=== PATIENT | female | born 1945 | race Caucasian/White ===

== ENCOUNTER 2018-09-29 15:48 | Outpatient (CLI) | payer MEDICARE, OTHER ==
--- NOTE | 2018-09-29 21:17 | XRAY Report ---
Reason: CHRONIC BACK PAIN Procedure Date: 09/29/2018 Accession Number: [id number] / [id number] Procedure: XR - Lumbar Spine 2 View CPT Code: FULL RESULT: EXAM: LUMBOSACRAL SPINE RADIOGRAPHY EXAM DATE: 09/29/2018 04:12 PM. CLINICAL HISTORY: Chronic back pain. Increased over the last several months after moving household goods. COMPARISONS: None. TECHNIQUE: 3 views. FINDINGS: Alignment: 10 degree dextroscoliosis centered at L2. 12 mm anterior subluxation L4 on L5 (grade 2 degenerative subluxation). Bones: Five [id number]-uworxre lumbar vertebral bodies are present. Old mild anterior wedging L1 and L2. Disks: Moderate to marked narrowing, moderate osteophytes and subcortical sclerosis throughout the lumbar spine, to a greatest degree at L1-L2 and L3-L4. Facets: Multilevel marked degenerative changes. Sacroiliac Joints: Moderate degenerative changes both sacroiliac joints. Mild degenerative changes both hips. Soft Tissues: Cholecystectomy. The visualized bowel gas pattern is normal. IMPRESSION: 1. No acute bony abnormality. 2. Multilevel moderate to marked degenerative changes. Suspect multilevel central and neural foraminal compromise due to such, especially at the L4-L5 level. RADIA
== END 2018-09-29 15:49 | disposition home or self-care (01) ==
LOC: DI 15:48
PROVIDERS: ATTEND Registered Nurse
DX: M47.816 Spondylosis without myelopathy or radiculopathy, lumbar region (principal); M41.86 Other forms of scoliosis, lumbar region; M48.061 Spinal stenosis, lumbar region without neurogenic claudication; M25.78 Osteophyte, vertebrae; G89.29 Other chronic pain
CPT/HCPCS: 72100

== ENCOUNTER 2018-12-17 10:34 | Outpatient (CLI) | payer MEDICARE, OTHER ==
[2018-12-17] MEDS ORDERED: IOVERSOL 320 50 ML VIAL ONE (10:43)
[2018-12-17] MEDS ORDERED: IOVERSOL 320 100 ML VIAL IVP ONE ×2 (10:43→12:12)
[2018-12-17 11:13] LABS: CREATININE 0.8 mg/dL (0.4-1.0)
[2018-12-17] MEDS ORDERED: IOVERSOL 320 50 ML VIAL PO ONE (12:12)
--- NOTE | 2018-12-17 12:42 | CT Report ---
Reason: EPIGASTRIC PAIN Procedure Date: 12/17/2018 Accession Number: [id number] / [id number] Procedure: CT - Abdomen/Pelvis W CPT Code: FULL RESULT: EXAM: CT ABDOMEN AND PELVIS EXAM DATE: 12/17/2018 12:11 PM. CLINICAL HISTORY: Epigastric pain. COMPARISONS: None. TECHNIQUE: Routine helical CT imaging was performed through the abdomen and pelvis. IV contrast: opti 320 90 ml. Enteric contrast: Yes. Reconstructions: Coronal and sagittal. In accordance with CT protocol optimization, one or more of the following dose reduction techniques were utilized for this exam: automated exposure control, adjustment of mA and/or KV based on patient size, or use of iterative reconstructive technique. FINDINGS: Lung Bases: Unremarkable. Liver: Normal. No masses. Gallbladder/Bile Ducts: Status post cholecystectomy. Spleen: Normal. Pancreas: Normal. Adrenal Glands: Normal. Kidneys: Normal. No masses or hydronephrosis. Peritoneal Cavity/Bowel: Normal. No free fluid, free air or adenopathy. No masses or acute inflammatory process. The appendix is well visualized and normal. Pelvic Organs: Normal. The bladder and visualized pelvic organs are within normal limits. Vasculature: Unusual appearance of the superior abdominal IVC, felt to be contrast bolus timing related, less likely thrombus or narrowing. Bones: No significant abnormality. Other: None. IMPRESSION: Unusual appearance of the contrast bolus within the IVC was felt to be due to bolus timing. If the patient demonstrates symptoms compatible with DVT or central venous obstruction, ultrasound examination of the abdomen and/or leg veins could be used to clarify. Otherwise, no abnormalities detected by CT. RADIA
== END 2018-12-17 10:35 | disposition home or self-care (01) ==
LOC: LAB 10:34 → DI 10:35
PROVIDERS: ATTEND Nurse Practitioner Family
DX: R10.13 Epigastric pain (principal); Z90.49 Acquired absence of other specified parts of digestive tract
CPT/HCPCS: 36415; 74177; 82565; Q9967

== ENCOUNTER 2019-01-05 20:37 | Outpatient (CLI) | payer MEDICARE, OTHER ==
--- NOTE | 2019-01-06 11:42 | Ultrasound Report ---
Reason: ABNORMAL FINDINGS ON DIAGNOSTIC IMAGING OF ABDOMIN Procedure Date: 01/05/2019 Accession Number: [id number] / [id number] Procedure: US - Retroperitoneal Limited CPT Code: FULL RESULT: EXAM: IVC DOPPLER ULTRASOUND EXAM DATE: 01/05/2019 09:10 PM. CLINICAL HISTORY: Follow-up atypical appearance of the IVC on recent abdominal CT 12/17/2018. COMPARISON: ABDOMEN/PELVIS W/ 12/17/2018 12:04 PM. TECHNIQUE: Real-time sonographic imaging of retroperitoneal vascular structures, including color-flow, Doppler flow and spectral analysis was performed by the manager of international with attention to the IVC and common iliac veins.. Multiple equal opportunity representative static images were saved for review. FINDINGS: Proximal intrahepatic IVC is diminished in caliber measuring 5 mm in diameter. There is patent flow. Normal caliber to the distal IVC at 1.4 x 2.4 cm. Both common iliac veins show normal caliber and patency. No appreciable thrombus. Review of the CT scan demonstrates focal circumferential narrowing of the junction of the hepatic veins and upper intrahepatic IVC, seen best on reconstructed images. No apparent external mass. The contrast heterogeneity on the abdomen is consistent with mixing of non-opacified with contrast opacified blood. IMPRESSION: 1. Small caliber but patent proximal intrahepatic IVC. No evidence of IVC or common iliac vein thrombosis. Circumferential significant narrowing of the upper intrahepatic IVC at the junction of hepatic veins is best seen on CT of uncertain etiology and chronicity. No appreciable mass. RADIA
== END 2019-01-05 20:38 | disposition home or self-care (01) ==
LOC: DI 20:37
PROVIDERS: ATTEND Nurse Practitioner Family
DX: R93.5 Abnormal findings on diagnostic imaging of other abdominal regions, including retroperitoneum (principal)
CPT/HCPCS: 76775

== ENCOUNTER 2020-02-07 14:08 | Outpatient (CLI) | payer MEDICARE, OTHER ==
--- NOTE | 2020-02-08 09:55 | XRAY Report ---
Reason: SWELLING OF JOINT OF RT WRIST Procedure Date: 02/07/2020 Accession Number: [id number] / [id number] Procedure: XR - Hand 3 View RT CPT Code: Final Report FULL RESULT: EXAM: RIGHT HAND RADIOGRAPHY EXAM DATE: 02/07/2020 02:24 PM. CLINICAL HISTORY: Swelling of joint of right wrist. COMPARISON: None. TECHNIQUE: 3 views. FINDINGS: Generalized bony demineralization. No fractures detected. No subluxations. Advanced degenerative changes at the 1st carpometacarpal articulation, partial collapse of the trapezium and osteophytic spurring at the base of the 1st metacarpal. There is moderate narrowing of the 2nd metacarpophalangeal articulation, with osteophytic spurring of the head of the 2nd metacarpal. There is moderate narrowing and osteophytic spurring of the distal interphalangeal articulations. There is also moderate narrowing of the proximal interphalangeal articulations, with tendinous calcification at the 4th proximal interphalangeal articulation. IMPRESSION: Moderate to advanced degenerative changes at the articulations of the right hand. RADIA
--- NOTE | 2020-02-08 09:55 | XRAY Report ---
Reason: SWELLING OF JOINT OF RT WRIST Procedure Date: 02/07/2020 Accession Number: [id number] / [id number] Procedure: XR - Wrist 3 View RT CPT Code: Final Report FULL RESULT: EXAM: RIGHT WRIST RADIOGRAPHY EXAM DATE: 02/07/2020 02:24 PM. CLINICAL HISTORY: Swelling of joint of right wrist. COMPARISON: None. TECHNIQUE: 3 views. FINDINGS: There is advanced arthropathic changes at the first carpometacarpal articulation, with partial collapse of the trapezium and osteophytic spurring at the articulation. Elsewhere intercarpal articulations appear within normal limits. No fracture identified. Mild narrowing of the radiocarpal articulation. IMPRESSION: Advanced arthropathic changes at the first carpometacarpal articulation. RADIA
== END 2020-02-07 14:09 | disposition home or self-care (01) ==
LOC: DI 14:08
PROVIDERS: ATTEND Nurse Practitioner Family
DX: M19.041 Primary osteoarthritis, right hand (principal); M18.11 Unilateral primary osteoarthritis of first carpometacarpal joint, right hand

== ENCOUNTER 2020-11-29 13:13 | Outpatient (CLI) | payer MEDICARE, OTHER ==
[2020-11-29] MEDS ORDERED: IOVERSOL 320 100 ML VIAL IVP ONE ×2 (13:28→17:02)
[2020-11-29] MEDS ORDERED: IOPAMIDOL-300 50 ML VIAL ONE (13:28)
[2020-11-29] MEDS ORDERED: IOPAMIDOL-300 50 ML VIAL PO ONE (17:03)
--- NOTE | 2020-11-29 17:13 | CT Report ---
PROCEDURE: Abdomen/Pelvis W INDICATIONS: LT UPPER QUAD PAIN CONTRAST: IV CONTRAST: Optiray 320 ml: 100 PO CONTRAST: Isovue 300 ml50 TECHNIQUE: After the administration of oral and IV contrast, 5 mm thick sections acquired from the diaphragms to the symphysis. 5 mm thick coronal and sagittal reformats were acquired. For radiation dose reducti on, the following was used: automated exposure control, adjustment of mA and/or kV according to marylin ent size. COMPARISON: CT abdomen pelvis 12/17/2018 FINDINGS: Image quality: Excellent. ABDOMEN: Lung bases: Lung bases are clear. Heart size is normal. Solid organs: Hepatomegaly and moderate hepatic steatosis. Possible vague 1.9 cm enhancing lesion ce ntrally in the right hepatic lobe, segment VIII. No other discrete liver lesion visible. The spleen i s normal size and contains an 8 mm hypodensity in the superior pole. There is a splenule adjacent to the inferior pole. The gallbladder is surgically absent. Biliary system is non dilated. Pancreas enh ances normally. No adrenal nodules. Kidneys demonstrate normal size and enhancement, without hydron ephrosis. Peritoneum and bowel: Bowel loops demonstrate normal wall thickness and caliber. No free fluid or a ir. Nodes and vessels: No retroperitoneal or mesenteric adenopathy by size criteria. Aorta and inferior vena cava are normal in size. Miscellaneous: No ventral hernias. PELVIS: Genitourinary: Bladder wall thickness is normal. The uterus is surgically absent. Residual ovarian tissue appears normal. Miscellaneous: No inguinal hernias or adenopathy. Bones: No suspicious bony lesions. Multilevel degenerative disc and endplate changes throughout the lumbar spine with anterolisthesis at the L4-5 level. No vertebral body compression fractures. IMPRESSION: 1. No explanation for left upper quadrant pain. 2. Possible 1.9 cm central liver lesion, not seen previously, potentially FNH or hemangioma. Consider liver MRI for further characterization. 3. Hepatomegaly and hepatic steatosis. 4. Hypodensity in the spleen is likely benign hemangioma or lymphangioma. This was present previously . Reviewed by: Ashley Baca MD on 11/29/2020 5:12 PM PST Approved by: Ashley Baca MD on 11/29/2020 5:12 PM PST Station ID: [id number]
== END 2020-11-29 13:14 | disposition home or self-care (01) ==
LOC: DI 13:13
PROVIDERS: ATTEND Internal Medicine
DX: R10.12 Left upper quadrant pain (principal); R16.0 Hepatomegaly, not elsewhere classified; K76.0 Fatty (change of) liver, not elsewhere classified; R93.2 Abnormal findings on diagnostic imaging of liver and biliary tract; R93.89 Abnormal findings on diagnostic imaging of other specified body structures; Z79.899 Other long term (current) drug therapy
CPT/HCPCS: 74177; Q9967; 36415; 82565

== ENCOUNTER 2020-11-29 13:17 | Outpatient (CLI) | payer MEDICARE, OTHER ==
[2020-11-29 14:00] LABS: CREATININE 0.6 mg/dL (0.4-1.0)
== END 2020-11-29 13:18 | disposition home or self-care (01) ==
LOC: LAB 13:17
PROVIDERS: ATTEND Internal Medicine
DX: Z79.899 Other long term (current) drug therapy (principal)
CPT/HCPCS: 36415; 82565

== ENCOUNTER 2020-12-24 15:17 | Outpatient (CLI) | payer MEDICARE, OTHER ==
[2020-12-24] MEDS ORDERED: GADOBUTROL 10 MMOL/10 ML VIAL ONE (15:39)
[2020-12-24] MEDS ORDERED: GADOBUTROL 10 MMOL/10 ML VIAL IVP ONE (16:20)
--- NOTE | 2020-12-25 10:03 | MRI Report ---
PROCEDURE: Abdomen W/WO INDICATIONS: ABN ABD CT CONTRAST: IV CONTRAST: Gadavist ml: 8 TECHNIQUE: Coronal ultra fast SE, axial 2D spoiled GE in- and [id number]; axial breath-hold T2 fast SE. Dynam ic axial ultra fast GE during the administration of contrast; post-contrast coronal ultra fast GE or 2D spoiled GE with fat saturation from the hepatic dome to the iliac crests. Optional diffusion weig hted imaging and ADC may be performed. COMPARISON: CT abdomen pelvis 11/29/2020 FINDINGS: Image quality: Adequate, but there is artifact from patient body habitus obscuring portions of the li dada. Lung bases: No basal pleural effusions. Heart size is normal. Solid organs: The liver is mildly enlarged and demonstrates moderate signal drop on T1 out of phase i maging with mild heterogeneity. The vague 1.9 cm area of arterial enhancement in segment VIII is not clearly redemonstrated on the current study. There is no suspicious washout lesion in the liver. The vasculature appears patent. Spleen length is at the upper limits of normal and there is a small subcentimeter focus of hypoenhanc ement in the superior pole with increased T2 signal, likely a cyst. Gallbladder is surgically absent . Biliary system is non dilated. Pancreas is normal in morphology. No adrenal nodules. Both kidne ys demonstrate normal size and enhancement, without hydronephrosis. Subcentimeter cortical cysts noble se from the upper pole of each kidney. Nodes and vessels: No retroperitoneal or mesenteric adenopathy by size criteria. Aorta and inferior vena cava are normal in size. Bowel and peritoneum: Unenhanced bowel loops are normal in caliber. No free fluid. Bones and soft tissues: No ventral hernias. Bone marrow is normal in overall signal. IMPRESSION: 1. No convincing liver lesion. The previously seen arterial enhancement was possibly vascular shuntin g, benign flash fill hemangioma, or area of heterogeneous focal fatty sparing. 2. Hepatomegaly and moderate hepatic steatosis. 3. Small upper pole splenic cyst. Reviewed by: Ashley Baca MD on 12/25/2020 10:02 AM PST Approved by: Ashley Baca MD on 12/25/2020 10:02 AM PST Station ID: [id number]
== END 2020-12-24 15:18 | disposition home or self-care (01) ==
LOC: DI 15:17
PROVIDERS: ATTEND Internal Medicine
DX: K76.0 Fatty (change of) liver, not elsewhere classified (principal); D73.4 Cyst of spleen
CPT/HCPCS: 74183; A9585

== ENCOUNTER 2023-07-20 15:33 | Emergency (ER) | payer MEDICARE, OTHER ==
--- NOTE | 2023-07-20 16:03 | XRAY Report ---
PROCEDURE: Chest 1 View X-Ray INDICATIONS: SOB/KELLEY TECHNIQUE: One view of the chest was acquired. COMPARISON: None. FINDINGS: Surgical changes and devices: None. Lungs and pleura: No pleural effusions or pneumothorax. Prominent interstitial markings. Mediastinum: Mediastinal contours appear normal. Heart size is mildly enlarged. Bones and chest wall: No suspicious bony lesions. Overlying soft tissues appear unremarkable. IMPRESSION: Cardiomegaly with prominent interstitial markings which may represent pulmonary edema, correlate with volume status. Reviewed by: Thai Warren MD on 07/20/2023 4:02 PM PDT Approved by: Thai Warren MD on 07/20/2023 4:02 PM PDT Station ID: [id number]
[2023-07-20 16:25] LABS: BASOPHILS % (AUTO) 0.3 %; EOSINOPHILS # (AUTO) 0.4 10^3/uL (0.0-0.7); EOSINOPHILS % (AUTO) 2.9 %; HCT - HEMATOCRIT 36.2 % (37.0-47.0); HGB - HEMOGLOBIN 11.7 g/dL (12.0-16.0); LYMPHOCYTES # (AUTO) 3.1 10^3/uL (1.5-3.5); LYMPHOCYTES % (AUTO) 24.8 %; MEAN CORPUSCULAR HEMOGLOBIN 29.8 pg (27.0-31.0); MEAN CORPUSCULAR HGB CONC 32.3 g/dL (32.0-36.0); MEAN CORPUSCULAR VOLUME 92.1 fL (81.0-99.0); MEAN PLATELET VOLUME 9.8 fL (7.9-10.8); MONOCYTES # (AUTO) 0.7 10^3/uL (0.0-1.0); MONOCYTES % (AUTO) 5.8 %; NEUTROPHILS # (AUTO) 8.3 10^3/uL (1.5-6.6); NEUTROPHILS % (AUTO) 65.7 %; PLT - PLATELET COUNT 308 10^3/uL (130-450); RED BLOOD COUNT 3.93 10^6/uL (4.20-5.40); RED CELL DISTRIBUTION WIDTH 12.5 % (12.0-15.0); WHITE BLOOD COUNT 12.6 x10^3/uL (4.8-10.8)
--- OUTSIDE RECORDS SUMMARY | 2023-07-20 16:30 | EXTERNAL MEDICAL SUMMARY RPT | Continuity of Care Document ---
Author Name Unknown Address [address] [place] [address] Phone Organization [facility] Address [address] [place] [address] Phone Care Team Providers Care Agriculture Research Director Name Role Phone Unavailable Unavailable Unavailable Gabe Small, Jai Unavailable Unavailable Lemuel Horton, Mike Unavailable Unavailable Gentry Small, Ariadna Unavailable Unavailable Kalyan Patient Registrar, Hammad Unavailable Marcia Harris Patient Registrar Ii, Angely Unavailab le Unavailable Medications date description facility 2023-04-28 00:00 [facility]ide [facility] 2023-04-28 00:00 semaglutide [facility] 2023-04-29 00:00 semaglutide [facility] 2023-07-17 00:00 semaglutide [facility] 2023-07-17 00:00 semaglutide [facility] 2023-07-20 00:00 semaglutide [facility] 2023-07-20 00:00 semaglutide [facility] 2023-07-17 00:00 azithromycin [facility] 2023-07-17 00:00 azithromycin [facility] 2023-04-28 00:00 semaglutide [facility] 2023-04-28 00:00 semaglutide [facility] 2023-04-29 00:00 semaglutide [facility] 2023-07-17 00:00 semaglutide [facility] 2023-07-17 00:00 semaglutide [facility] 2023-07-20 00:00 semaglutide [facility] 2023-07-20 00:00 semaglutide [facility] 2023-04-28 00:00 semaglutide [facility] 2023-04-28 00:00 semaglutide [facility] 2023-04-29 00:00 semaglutide [facility] 2023-07-17 00:00 semaglutide [facility] 2023-07-17 00:00 semaglutide [facility] 2023-07-20 00:00 semaglutide [facility] 2023-07-20 00:00 semaglutide [facility] 2023-04-28 00:00 metformin [facility] 2023-04-28 00:00 metformin [facility] 2023-04-29 00:00 metformin [facility] 2023-07-17 00:00 metformin [facility] 2023-07-17 00:00 metformin [facility] 2023-07-20 00:00 metformin [facility] 2023-07-20 00:00 metformin [facility] 2023-04-28 00:00 metformin [facility] 2023-04-28 00:00 metformin [facility] 2023-04-29 00:00 metformin [facility] 2023-07-17 00:00 metformin [facility] 2023-07-17 00:00 metformin [facility] 2023-07-20 00:00 metformin [facility] 2023-07-20 00:00 metformin [facility] 2023-07-17 00:00 azithromycin [facility] 2023-07-17 00:00 azithromycin [facility] 2023-04-28 00:00 atorvastatin [facility] 2023-04-28 00:00 atorvastatin [facility] 2023-04-29 00:00 atorvastatin [facility] 2023-07-17 00:00 atorvastatin [facility] 2023-07-17 00:00 atorvastatin [facility] 2023-07-20 00:00 atorvastatin [facility] [place] 2023-07-20 00:00 atorvastatin [facility] [place] 2023-07-17 00:00 albuterol sulfate [facility] [place] 2023-07-17 00:00 albuterol sulfate [facility] [place] 2023-07-17 00:00 albuterol sulfate [facility] [place] 2023-07-17 00:00 albuterol sulfate [facility] [place] 2023-04-28 00:00 atorvastatin [facility] [place] 2023-04-28 00:00 atorvastatin [facility] [place] 2023-04-29 00:00 atorvastatin [facility] [place] 2023-07-17 00:00 atorvastatin [facility] [place] 2023-07-17 00:00 atorvastatin [facility] [place] 2023-07-20 00:00 atorvastatin [facility] [place] 2023-07-20 00:00 atorvastatin [facility] 2023-07-17 00:00 azithromycin [facility] 2023-07-17 00:00 azithromycin [facility] 2023-04-28 00:00 metformin [facility] 2023-04-28 00:00 metformin [facility] [place] 2023-04-29 00:00 metformin [facility] [place] 2023-07-17 00:00 metformin [facility] 2023-07-17 00:00 metformin [facility] 2023-07-20 00:00 metformin [facility] 2023-07-20 00:00 metformin [facility] 2023-04-28 00:00 duloxetine [facility] 2023-04-28 00:00 duloxetine [facility] 2023-04-29 00:00 duloxetine [facility] 2023-07-17 00:00 duloxetine [facility] 2023-07-17 00:00 duloxetine [facility] 2023-07-20 00:00 duloxetine [facility] 2023-07-20 00:00 duloxetine [facility] [place] 2023-04-28 00:00 duloxetine [facility] [place] 2023-04-28 00:00 duloxetine [facility] 2023-04-29 00:00 duloxetine [facility] [place] 2023-07-17 00:00 duloxetine [facility] [place] 2023-07-17 00:00 duloxetine [facility] 2023-07-20 00:00 duloxetine [facility] 2023-07-20 00:00 duloxetine [facility] 2023-07-17 00:00 azithromycin [facility] 2023-07-17 00:00 azithromycin [facility] [place] 2023-04-28 00:00 atorvastatin [facility] [place] 2023-04-28 00:00 atorvastatin [facility] [place] 2023-04-29 00:00 atorvastatin [facility] 2023-07-17 00:00 atorvastatin [facility] 2023-07-17 00:00 atorvastatin [facility] [place] 2023-07-20 00:00 atorvastatin [facility] [place] 2023-07-20 00:00 atorvastatin [facility] [place] 2023-04-28 00:00 atorvastatin [facility] [place] 2023-04-28 00:00 atorvastatin [facility] [place] 2023-04-29 00:00 atorvastatin [facility] [place] 2023-07-17 00:00 atorvastatin [facility] [place] 2023-07-17 00:00 atorvastatin [facility] [place] 2023-07-20 00:00 atorvastatin [facility] [place] 2023-07-20 00:00 atorvastatin [facility] [place] 2023-07-17 00:00 albuterol sulfate [facility] 2023-07-17 00:00 albuterol sulfate [facility] [place] 2023-04-28 00:00 duloxetine [facility] 2023-04-28 00:00 duloxetine [facility] 2023-04-29 00:00 duloxetine [facility] 2023-07-17 00:00 duloxetine [facility] 2023-07-17 00:00 duloxetine [facility] 2023-07-20 00:00 duloxetine [facility] 2023-07-20 00:00 duloxetine [facility] 2023-07-17 00:00 albuterol sulfate [facility] [place] 2023-07-17 00:00 albuterol sulfate [facility] [place] 2023-04-28 00:00 metformin [facility] [place] 2023-04-28 00:00 metformin [facility] [place] 2023-04-29 00[facility]00 metformin [facility] 2023-07-17 00:00 metformin [facility] [place] 2023-07-17 00:00 metformin [facility] [place] 2023-07-20 00:00 metformin [facility] [place] 2023-07-20 00:00 metformin [facility] [place] 2023-04-28 00:00 duloxetine [facility] [place] 2023-04-28 00:00 duloxetine [facility] [place] 2023-04-29 00:00 duloxetine [facility] [place] 2023-07-17 00:00 duloxetine [facility] [place] 2023-07-17 00:00 duloxetine [facility] [place] 2023-07-20 00:00 duloxetine [facility] [place] 2023-07-20 00:00 duloxetine [facility] Problems date description facility 2023-04-28 00:00 Impacted cerumen of bilateral e ars [facility] 2023-04-28 00:00 Impacted cerumen of bilateral e ars [facility] 2023-04-28 00:00 Impacted cerumen of bilateral e ars [facility] 2023-04-28 00:00 Impacted cerumen of bilateral e ars [facility] 2023-04-28 00:00 Impacted cerumen [facility] 2023-04-28 00:00 Impacted cerumen [facility] 2023-04-28 00:00 Impacted cerumen [facility] 2023-04-28 00:00 Impacted cerumen [facility] 2023-04-28 00:00 Impacted cerumen, bilateral [facility] 2023-04-28 00:00 Impacted cerumen, bilateral [facility] 2023-04-28 00:00 Impacted cerumen, bilateral [facility] 2023-04-28 00:00 Impacted cerumen, bilateral [facility] 2023-07-17 00:00 Other malaise and fatigue [facility] 2023-07-17 00:00 Other malaise and fatigue [facility] 2023-07-17 00:00 Cough [facility] 2023-07-17 00:00 Cough [facility] 2023-07-17 00:00 Fatigue [facility] 2023-07-17 00:00 Fatigue [facility] 2023-07-17 00:00 Other specified cough [facility] 2023-07-17 00:00 Other specified cough [facility] 2023-07-17 00:00 Wheezing [facility] 2023-07-17 00:00 Wheezing [facility] 2023-07-17 00:00 Other fatigue [facility] 2023-07-17 00:00 Other fatigue [facility] 2023-07-20 00:00 Dyspnea [facility] 2023-07-20 00:00 Other dyspnea and re spiratory abnormality [facility] 2023-07-20 00:00 Dyspnea, unspecified [facility] [place] Procedures date description facility 2023-04-28 00:00 Visit Code Hold [facility] 2023-04-28 00:00 Visit Code Hold [facility] 2023-04-28 00:00 Visit Code Hold [facility] 2023-04-28 00:00 Visit Code Hold [facility] 2023-07-17 00:00 Visit Code Hold [facility] [place] 2023-07-17 00:00 Visit Code Hold [facility] [place] 2023-07-20 00:00 Visit Code Hold [facility] [place] 2023-07-20 00:00 EKG [facility] [place] 2023-04-28 00:00 EAR LAVAGE, BILATERAL [facility] [place] 2023-04-28 00:00 EAR LAVAGE, BILATERAL [facility] [place] 2023-04-28 00:00 EAR LAVAGE, BILATERAL [facility] [place] 2023-04-28 00:00 EAR LAVAGE, BILATERAL [facility] [place] Social History date description facility 2023-04-28 00:00 Never smoker [facility] [place] 2023-04-28 00:00 Never smoker [facility] 2023-04-28 00:00 Never smoker [facility] 2023-04-28 00:00 Never smoker [facility] 2023-07-17 00:00 Never smoker [facility] 2023-07-17 00:00 Never smoker [facility] [place] 2023-07-20 00:00 Never smoker [facility] [place] Vital Signs date measurement value units 2023-04-28 00:00 BMI 36.85 kg/m2 2023-04-28 00:00 BP_diastolic 92 mmHg 2023-04-28 00:00 BP_systolic 150 mmHg 2023-04-28 00:00 heart_rate 114 /min 2023-04-28 00:00 height_metric 152.4 cm 2023-04-28 00:00 height_standard 60 in 2023-04-28 00:00 respiration_rate 18 /min 2023-04-28 00:00 temperature_metric 36.72 C 2023-04-28 00:00 temperature_standard 98.1 F 2023-04-28 00:00 weight_metric 85.28 kg 2023-04-28 00:00 weight_standard 188 lb 2023-07-17 00:00 BP_diastolic 99 mmHg 2023-07-17 00:00 BP_systolic 175 mmHg 2023-07-17 00:00 heart_rate 112 /min 2023-07-17 00:00 height_metric 152.4 cm 2023-07-17 00:00 height_standard 60 in 2023-07-17 00:00 respiration_rate 22 /min 2023-07-17 00:00 temperature_metric 36.28 C 2023-07-17 00:00 temperature_standard 97.3 F 2023-07-20 00:00 BP_diastolic 111 mmHg 2023-07-20 00:00 BP_systolic 201 mmHg 2023-07-20 00:00 heart_rate 123 /min 2023-07-20 00:00 height_metric 152.4 cm 2023-07-20 00:00 height_standard 60 in 2023-07-20 00:00 respiration_rate 22 /min 2023-07-20 00:00 temperature_metric 35.78 C 2023-07-20 00:00 temperature_standard 96.4 F
[2023-07-20 16:45] LABS: ALBUMIN 3.9 g/dL (3.2-5.5); ALBUMIN/GLOBULIN RATIO 1.4 (1.0-2.2); BILIRUBIN,TOTAL 0.3 mg/dL (0.2-1.0); CALCIUM 9.4 mg/dL (8.5-10.3); CREATININE 0.7 mg/dL (0.6-1.3); POTASSIUM 3.6 mmol/L (3.5-4.5); TOTAL PROTEIN 6.7 g/dL (6.4-8.9)
[2023-07-20 16:48] LABS: TROPONIN I HIGH SENSITIVITY 12.5 ng/L (2.3-14.8)
[2023-07-20 17:22] LABS: B. PARAPERTUSSIS- RESP PCR PAN NOT DETECTED; B. PERTUSSIS- RESP PCR PANEL NOT DETECTED; C. PNEUMONIAE- RESP PCR PANEL NOT DETECTED; CORONAVIRUS 229E-RESP PCR NOT DETECTED; CORONAVIRUS HKU1-RESP PCR NOT DETECTED; CORONAVIRUS NL63-RESP PCR NOT DETECTED; CORONAVIRUS OC43-RESP PCR NOT DETECTED; HUMAN METAPNEUMOVIRUS NOT DETECTED; INFLUENZA A- RESP PCR PANEL NOT DETECTED; INFLUENZA B - RESP PCR PANEL NOT DETECTED; M. PNEUMONIAE- RESP PCR PANEL NOT DETECTED; PARAINFLUENZA VIRUS 1 NOT DETECTED; PARAINFLUENZA VIRUS 2 NOT DETECTED; PARAINFLUENZA VIRUS 3 NOT DETECTED; PARAINFLUENZA VIRUS 4 NOT DETECTED; RHINOVIRUS/ENTEROVIRUS NOT DETECTED; RSV- RESP PCR PANEL NOT DETECTED; SARS-CoV-2 -RESP PCR PANEL NOT DETECTED
[2023-07-20] MEDS: METOPROLOL 5 MG/5 ML VIAL IVP STA (17:49)
[2023-07-20] MEDS: NITROGLYCERIN 2% PASTE TOP STA (17:49)
[2023-07-20] MEDS: FUROSEMIDE 40 MG/4 ML VIAL IVP STA (17:49)
[2023-07-20] MEDS: METOPROLOL TARTRATE 50 MG TABLET PO STA (17:50)
--- NOTE | 2023-07-20 18:58 | ED Physician Documentation ---
History of Present Illness - Stated complaint Stated Complaint: SOA, HIGH BP - Chief complaint Chief Complaint: General - History obtained from History obtained from: Patient, Family - Additonal information Additional information: The patient sent to the emergency department from the walk-in clinic for chief complaint of shortness of breath and elevated blood pressure. Patient states that she is also had some swelling in her feet over approximately the last couple of weeks. She has no history of congestive heart failure that she knows of and states that she sometimes gets elevated blood pressure readings but that usually, this is associated with medical visits and that her pressure comes down once she has been at the clinic for a bit. The patient denies any headaches, focal neurologic deficits, or chest pain. She states she has been noticing some dyspnea on exertion and with laying back. She feels good laying in the bed, she states. PD PAST MEDICAL HISTORY - Past Medical History Past Medical History: Yes Cardiovascular: High cholesterol Neuro: Peripheral neuropathy Endocrine/Autoimmune: Type 2 diabetes Musculoskeletal: Chronic back pain - Past Surgical History Past Surgical History: Yes Ortho: Carpal Tunnel surgery /[employer]: Hysterectomy - Present Medications Home Medications: Ambulatory Orders Medication Instructions Recorded Confirmed Gabapentin 100 - 200 mg PO DAILY PRN 04/14/19 07/20/23 Gabapentin 900 mg PO QPM 04/14/19 07/20/23 Hydrocodone/Acetaminophen 1 tab PO Q4HR PRN 04/14/19 04/14/19 [Hydrocodone-Acetamin 5-325 mg] Multivitamin/Iron/Folic Acid 1 each PO DAILY 04/14/19 07/20/23 [Centrum Adults Tablet] Spironolactone 25 mg PO DAILY 04/14/19 07/20/23 lisinopriL [Lisinopril] 10 mg PO DAILY 04/14/19 07/20/23 Furosemide [Lasix] 20 mg PO DAILY #7 tablet 07/20/23 lisinopriL [Lisinopril] 10 mg PO BID #30 tablet 07/20/23 - Allergies Allergies/Adverse Reactions: Allergies Allergy/AdvReac Type Severity Reaction Status Date / Time pregabalin [From Lyrica] Allergy Severe suicidal Verified 07/20/23 15:39 quinine AdvReac Dizziness Verified 07/20/23 15:39 - Social History Does the pt smoke?: No Smoking Status: Former smoker PD ED PE NORMAL - Vitals Vital signs reviewed: Yes - General General: Alert and oriented X 3, No acute distress, Well developed/nourished - HEENT HEENT: Atraumatic, PERRL, EOMI, Moist mucous membranes - Neck Neck: Supple, no meningeal sign - Cardiac Cardiac: No murmur, Other (Mildly tachycardic, irregularly irregular) - Respiratory Respiratory: No respiratory distress, Clear bilaterally - Abdomen Abdomen: Soft, Non tender, Non distended - Derm Derm: Normal color, Warm and dry, No rash - Extremities Extremities: No deformity, Other (1+ pitting edema in bilateral lower legs and feet.) - Neuro Neuro: Alert and oriented X 3, Other (Grossly intact) - Psych Psych: Normal mood, Normal affect Results - Vitals Vitals: Oxygen O2 Source Room air - EKG (time done) 1555 EKG releavant findings:: EKG personally interpreted by author of this note. Relevant findings are: Rate: Rate (enter#) (112) Rhythm: Sinus tachycardia (With PACs) Colome: Normal Intervals: Normal [place] QRS: Normal Ischemia: Normal ST segments, Non specific changes Compare to prior EKG: Old EKG unavailable - Labs Labs: Laboratory Tests 07/20/23 07/20/23 07/20/23 16:15 16:18 16:18 WBC 12.6 H RBC 3.93 L Hgb 11.7 L Hct 36.2 L MCV 92.1 MCH 29.8 MCHC 32.3 RDW 12.5 Plt Count 308 MPV 9.8 Neut # (Auto) 8.3 H Lymph # (Auto) 3.1 Thomas # (Auto) 0.7 Eos # (Auto) 0.4 Baso # (Auto) 0.0 Absolute Nucleated RBC 0.00 Nucleated RBC % 0.0 Sodium 138 Potassium 3.6 Chloride 102 Carbon Dioxide 28 Anion Gap 8.0 BUN 18 Creatinine 0.7 Estimated GFR (MDRD) 81 L Glucose 271 H Calcium 9.4 Total Bilirubin 0.3 AST 37 ALT 25 Alkaline Phosphatase 112 Troponin I High Sens 12.5 B-Natriuretic Peptide Cancelled Total Protein 6.7 Albumin 3.9 Globulin 2.8 Albumin/Globulin Ratio 1.4 Lipase 31 Nasal Adenovirus (PCR) NOT DETECTED Nasal B. parapertussis DNA (PCR) NOT DETECTED Nasal Coronavir 229E PCR NOT DETECTED Nasal Coronavir HKU1 PCR NOT DETECTED Nasal Coronavir NL63 PCR NOT DETECTED Nasal Coronavir OC43 PCR NOT DETECTED Nasal Enterovir/Rhinovir PCR NOT DETECTED Nasal Influenza B PCR NOT DETECTED Nasal Influenza A PCR NOT DETECTED Nasal Parainfluen 1 PCR NOT DETECTED Nasal Parainfluen 2 PCR NOT DETECTED Nasal Parainfluen 3 PCR NOT DETECTED Nasal Parainfluen 4 PCR NOT DETECTED Nasal RSV (PCR) NOT DETECTED Nasal B.pertussis DNA PCR NOT DETECTED Nasal C.pneumoniae (PCR) NOT DETECTED [place] Human Metapneumo PCR NOT DETECTED Nasal M.pneumoniae (PCR) NOT DETECTED Nasal SARS-CoV-2 (PCR) NOT DETECTED 07/20/23 16:18 WBC RBC Hgb Hct MCV MCH MCHC RDW Plt Count MPV Neut # (Auto) Lymph # (Auto) Thomas # (Auto) Eos # (Auto) Baso # (Auto) Absolute Nucleated RBC Nucleated RBC % Sodium Potassium Chloride Carbon Dioxide Anion Gap BUN Creatinine Estimated GFR (MDRD) Glucose Calcium Total Bilirubin AST ALT Alkaline Phosphatase Troponin I High Sens B-Natriuretic Peptide 37 Total Protein Albumin Globulin Albumin/Globulin Ratio Lipase Nasal Adenovirus (PCR) Nasal B. parapertussis DNA (PCR) Nasal Coronavir 229E PCR Nasal Coronavir HKU1 PCR Nasal Coronavir NL63 PCR Nasal Coronavir OC43 PCR Nasal Enterovir/Rhinovir PCR Nasal Influenza B PCR Nasal Influenza A PCR Nasal Parainfluen 1 PCR Nasal Parainfluen 2 PCR Nasal Parainfluen 3 PCR Nasal Parainfluen 4 PCR Nasal RSV (PCR) Nasal B.pertussis DNA PCR Nasal C.pneumoniae (PCR) [place] Human Metapneumo PCR Nasal M.pneumoniae (PCR) Nasal SARS-CoV-2 (PCR) - Rads (name of study) Chest x-ray Relevant Findings:: Final report received, See rad report (Cardiomegaly, some pulmonary vascular congestion/edema) PD Medical Decision Making - ED course Complexity details: reviewed results, re-evaluated patient, considered differential, d/w patient, d/w family ED course: The patient was worked up with laboratory studies including CBC, ER abdominal panel, troponin, and BNP. Both her BNP and troponin were normal. EKG showed sinus tachycardia with frequent PACs. Chest x-ray showed some cardiomegaly with prominent interstitial markings could be consistent with edema. Given this and the edema and the patient has had in her feet, I did go ahead and give her some Lasix. Also gave her a dose of metoprolol to help with her PACs and tachycardia. The patient's heart rate and rhythm normalized after metoprolol and she did begin to urinate with the Lasix. The patient was quite hypertensive in the emergency department and after some further discussion, she did admit that she actually does take a low-dose of lisinopril 10 mg. She also then remembered that she takes spironolactone as well. I discussed with her that I suspect her blood pressure has been running higher than she realizes for quite some time and that it is very important that she follows up with her primary doctor. For now, I will have her check her blood pressure at home once in the morning once in the middle of the day and once in the evening. I have advised her that if her systolic blood pressures greater than 140 on either her morning or evening check, that she may double her lisinopril dose from 10 to 20 mg. I will also prescribe a weeks worth of Lasix for the patient. She has an appointment coming up with her primary doctor in about a week and a half and can keep track of her blood pressure readings and lisinopril doses between now and then and bring this for her doctor to evaluate. The patient's daughter is present for this discussion and is in agreement. We discussed the usual indications for return. Departure - Departure Disposition: 01 Home, Self Care Clinical Impression: Tachycardia, Pulmonary vascular congestion Hypertension Qualifiers: Hypertension type: primary hypertension Qualified Code(s): I10 - Essential (primary) hypertension Condition: Stable Instructions: ED Edema Legs Bilateral, ED HTN Established Prescriptions: Furosemide [Lasix] 20 mg PO DAILY #7 tablet lisinopriL [Lisinopril] 10 mg PO BID #30 tablet Comments: Your labs look fairly good. There is no evidence of a heart attack or excessive stretching of your heart muscle. Given the irritability of your heart rhythm and the congestion in your lung Vessels in the setting of significantly elevated blood pressure, it is most likely that your blood pressure has been running high more than you realize and that your heart has been having to both chronically and acutely pump against a lot of pressure. Although you are not in heart failure or having a heart attack, you did have symptoms tonight of strain on your heart from the blood pressure being elevated and as such, it is important that we keep track of your blood pressure a bit better and get better control of it. As such, as we have discussed, you should adhere to the following plan: Please plan to check your blood pressure 3 times dailyonce about an hour after you get up in the morning, once in the middle of the day, and once in the evening an hour or 2 before you go to bed. If your blood pressure is greater than 140/100 in the morning or the evening, please take a double dose of your lisinopril, or 20 mg. You should also for this week take the extra dose of water pill each day to help drain some of the extra fluid out of your legs/feet and your lungs. Please schedule the next available appointment with your primary care provider to discuss what should be done next. Be sure to bring the log of your blood pressures with you so they can see how your blood pressures have been running and how much of your medicine you have been having to take. If you develop severe shortness of breath or chest pain, please return to the emergency department. A prescription for some extra lisinopril and the extra water pill have been electronically transmitted to the [facility] in [place]. Please pick these up tomorrow. Forms: PCP List Discharge Date/Time: 07/20/23 19:38
[2023-07-20 19:43] VITALS: BP 158/99; O2SAT 98
== END 2023-07-20 19:38 | disposition home or self-care (01) ==
LOC: ED 15:33
DX: R00.0 Tachycardia, unspecified (principal); R09.89 Other specified symptoms and signs involving the circulatory and respiratory systems; E78.00 Pure hypercholesterolemia, unspecified; E11.42 Type 2 diabetes mellitus with diabetic polyneuropathy; Z20.822 Contact with and (suspected) exposure to COVID-19; Z79.899 Other long term (current) drug therapy; Z87.891 Personal history of nicotine dependence
CPT/HCPCS: 36415; 80053; 83690; 83880; 84484; 85025; 87633; 93005; 96374; 99284

== ENCOUNTER 2024-04-13 12:07 | Outpatient (CLI) | payer MEDICARE, OTHER | END 2024-04-13 12:08 | disposition home or self-care (01) | LOC: DI 12:07 | PROVIDERS: ATTEND Internal Medicine Cardiovascular Disease | DX: R06.09 Other forms of dyspnea (principal) | CPT/HCPCS: 93307 ==